=== PATIENT | female | born 1975 ===

== ENCOUNTER 2018-09-06 21:15 | Observation (INO) ==
[2018-09-06] MEDS ORDERED: PROMETHAZINE 25 MG/1 ML VIAL ONE (21:37)
[2018-09-06] MEDS ORDERED: PANTOPRAZOLE 40 MG VIAL IV STA (21:40)
[2018-09-06] MEDS ORDERED: PROMETHAZINE 25 MG/1 ML VIAL IM STA (21:40)
[2018-09-06] MEDS ORDERED: NITROGLYCERIN 2% OINT 1 INCH/GM PACK TOP STA (21:40)
[2018-09-06] MEDS ORDERED: ASPIRIN 325 MG TABLET PO STA (21:40)
[2018-09-06] MEDS ORDERED: FUROSEMIDE 40 MG/4 ML VIAL IV STA (22:09)
[2018-09-06 22:47] LABS: Basophils % 0.3 % (0.0-0.8); Eosinophils # 0.1 10*3/uL (0.0-0.87); Hematocrit 38.3 VOL% (35.7-47.0); Hemoglobin 12.5 GM/DL (12.0-16.0); Immature Granulocytes % 0.7 %; Immature Granulocytes Absolute 0.11 #; Lymphocytes # 1.1 10*3/uL (1.4-4.0); Lymphocytes % 7.3 % (21.3-54.2); Mean Corpuscular HGB Conc 32.6 GM/DL (32-36); Mean Corpuscular Volume 85.9 FL (87-102); Mean Platelet Volume 10.2 FL (9.6-12.0); Monocytes % 5.4 % (1.7-12.7); Neutrophils % 85.3 % (38.7-73.9); Platelet Count 249 T/CUMM (130-400); Red Blood Count 4.46 MC/CUMM (3.8-5.5); Red Cell Distribution Width 13.2 % (9.3-17.3); White Blood Count 14.7 T/CUMM (4-12)
[2018-09-06 23:01] LABS: PT Patient Result 10.7 SECS
[2018-09-06] MEDS ORDERED: ONDANSETRON 4 MG/2 ML VIAL IV PRN (23:05)
[2018-09-06] MEDS ORDERED: MORPHINE 4 MG/1 ML VIAL IV PRN (23:05)
[2018-09-06 23:10] LABS: Albumin 3.8 G/DL (3.4-5.0); Bilirubin,Total 0.8 MG/DL (0.2-1.0); Calcium 9.2 MG/DL (8.5-10.1); Osmolality,Calculated 295.1 MOS/KG (273-304); Total Protein 7.4 G/DL (6.4-8.3)
[2018-09-07 00:47] LABS: Apearance,Urine CLOUDY (Clear); Bacteria,Urine Many /HPF (Few); Bilirubin,Urine Negative (Negative); Blood, Urine Small mg/dL (Negative); Glucose,Urine (UA) 150 mg/dL (Negative); Ketones,Urine Negative (Negative); Mucus,Urine Occasional /LPF (Occasional); Nitrite,Urine Negative (Negative); Protein,Urine Negative; RBC,Urine 13 /HPF (0-4); Urine Color Yellow (Yellow); Urine Specific Gravity 1.011 (1.001-1.035); Urine Urobilinogen < 2.0 EU/DL (0.2-1.0); WBC,Urine 539 /HPF (0-6)
[2018-09-07 00:52] LABS: Barbiturates Screen,Urine Negative (Negative); Benzodiazepines Screen,Urine Negative (Negative); Cannabinoid Screen,Urine Negative (Negative); Opiate Screen,Urine Positive (Negative); Phencyclidine Screen,Urine Negative (Negative)
[2018-09-07] MEDS: ENOXAPARIN 40 MG/0.4 ML SYRINGE SUBCUT SCH ×2 (01:10→23:41)
[2018-09-07 05:23] LABS: Basophils % 0.4 % (0.0-0.8); Eosinophils % 0.1 % (0.00-10.9); Hematocrit 37.6 VOL% (35.7-47.0); Hemoglobin 12.4 GM/DL (12.0-16.0); Immature Granulocytes % 0.5 %; Immature Granulocytes Absolute 0.06 #; Lymphocytes # 0.8 10*3/uL (1.4-4.0); Mean Corpuscular Volume 85.1 FL (87-102); Monocytes % 3.4 % (1.7-12.7); Neutrophils % 88.6 % (38.7-73.9); Platelet Count 274 T/CUMM (130-400); Red Blood Count 4.42 MC/CUMM (3.8-5.5); Red Cell Distribution Width 13.2 % (9.3-17.3); White Blood Count 11.2 T/CUMM (4-12)
[2018-09-07 05:56] LABS: Osmolality,Calculated 294.4 MOS/KG (273-304)
[2018-09-07] MEDS ORDERED: GLUCAGON 1 MG VIAL IM PRN (07:25)
[2018-09-07] MEDS ORDERED: DEXTROSE 50% 25 GM/50 ML VIAL IV PRN (07:25)
[2018-09-07 07:37] LABS: VLDL CHOLESTEROL 41.6 MG/DL
[2018-09-07 08:57] LABS: Free T4 (Free Thyroxine) 0.96 NG/DL (0.76-1.46); Thyroid Stimulating Hormone 5.01 uIU/ml (0.358-3.74)
[2018-09-07] MEDS ORDERED: LOSARTAN 25 MG TABLET PO SCH (09:00)
[2018-09-07] MEDS: ASPIRIN EC 81 MG TABLET PO SCH (09:10)
[2018-09-07] MEDS: CARVEDILOL 6.25 MG TABLET PO SCH ×2 (09:10→21:28)
[2018-09-07] MEDS: FUROSEMIDE 40 MG/4 ML VIAL IV SCH ×2 (09:11→17:18)
[2018-09-07] MEDS: PANTOPRAZOLE 40 MG TABLET PO SCH (09:11)
[2018-09-07] MEDS: cefTRIAXone 1,000 MG in SYRINGE 1 EACH IV SCH (10:52)
[2018-09-07] MEDS: INSULIN REGULAR 100 UNIT/ML SUBCUT SCH ×4 (10:53→21:28)
[2018-09-07] MEDS: ALBUTEROL/IPRATROPIUM 3 ML NEB RESP TX SCH ×3 (11:21→19:41)
[2018-09-07] MEDS: GLIMEPIRIDE 4 MG TABLET PO SCH (18:17)
[2018-09-07] MEDS: ATORVASTATIN 40 MG TABLET PO SCH (21:28)
[2018-09-08] MEDS: ALBUTEROL/IPRATROPIUM 3 ML NEB RESP TX SCH ×7 (00:22→23:55)
[2018-09-08 05:04] LABS: Basophils % 0.4 % (0.0-0.8); Eosinophils # 0.3 10*3/uL (0.0-0.87); Eosinophils % 3.4 % (0.00-10.9); Hemoglobin 12.5 GM/DL (12.0-16.0); Immature Granulocytes % 0.5 %; Immature Granulocytes Absolute 0.05 #; Lymphocytes # 2.6 10*3/uL (1.4-4.0); Lymphocytes % 27.3 % (21.3-54.2); Mean Corpuscular HGB Conc 32.9 GM/DL (32-36); Mean Corpuscular Volume 85.6 FL (87-102); Mean Platelet Volume 10.6 FL (9.6-12.0); Monocytes % 7.9 % (1.7-12.7); Neutrophils % 60.5 % (38.7-73.9); Platelet Count 254 T/CUMM (130-400); Red Blood Count 4.44 MC/CUMM (3.8-5.5); Red Cell Distribution Width 13.3 % (9.3-17.3); White Blood Count 9.3 T/CUMM (4-12)
[2018-09-08 05:30] LABS: Calcium 9.1 MG/DL (8.5-10.1); Osmolality,Calculated 290.1 MOS/KG (273-304)
[2018-09-08] MEDS ORDERED: POTASSIUM CHLORIDE RIDER 10 MEQ in PREMIX 1 EACH IV PRN (06:04)
[2018-09-08] MEDS ORDERED: POTASSIUM CHLORIDE 20 MEQ TABLET PO ONE (07:54)
[2018-09-08] MEDS: INSULIN REGULAR 100 UNIT/ML SUBCUT SCH ×4 (08:38→21:55)
[2018-09-08] MEDS ORDERED: FUROSEMIDE 20 MG TABLET PO SCH (09:00)
[2018-09-08] MEDS ORDERED: CARVEDILOL 3.125 MG TABLET PO SCH (10:50)
[2018-09-08] MEDS ORDERED: amLODIPine 5 MG TABLET PO SCH ×2 (11:00→21:00)
[2018-09-08] MEDS ORDERED: REGADENOSON 0.4 MG/5 ML SYRINGE IV ONE (11:15)
[2018-09-08] MEDS: ASPIRIN EC 81 MG TABLET PO SCH (11:29)
[2018-09-08] MEDS: GLIMEPIRIDE 4 MG TABLET PO SCH ×2 (11:30→18:20)
[2018-09-08] MEDS: cefTRIAXone 1,000 MG in SYRINGE 1 EACH IV SCH (11:30)
[2018-09-08] MEDS: PANTOPRAZOLE 40 MG TABLET PO SCH (11:30)
[2018-09-08] MEDS: CARVEDILOL 6.25 MG TABLET PO SCH (12:43)
[2018-09-08] MEDS ORDERED: GLUCAGON 1 MG VIAL IM PRN (14:19)
[2018-09-08] MEDS ORDERED: DEXTROSE 50% 25 GM/50 ML VIAL IV PRN (14:19)
[2018-09-08] MEDS: ATORVASTATIN 40 MG TABLET PO SCH (21:56)
[2018-09-08] MEDS: POTASSIUM CHLORIDE 20 MEQ TABLET PO PRN ×2 (21:56→23:56)
[2018-09-09] MEDS: ENOXAPARIN 40 MG/0.4 ML SYRINGE SUBCUT SCH (00:20)
[2018-09-09] MEDS: POTASSIUM CHLORIDE 20 MEQ TABLET PO PRN (02:40)
[2018-09-09] MEDS: ALBUTEROL/IPRATROPIUM 3 ML NEB RESP TX SCH ×3 (03:35→11:12)
[2018-09-09] MEDS: LEVOTHYROXINE 150 MCG TABLET PO SCH ×2 (05:43→09:03)
[2018-09-09 07:10] LABS: Basophils % 0.4 % (0.0-0.8); Eosinophils # 0.3 10*3/uL (0.0-0.87); Eosinophils % 3.5 % (0.00-10.9); Immature Granulocytes % 0.7 %; Immature Granulocytes Absolute 0.06 #; Lymphocytes # 2.1 10*3/uL (1.4-4.0); Lymphocytes % 22.4 % (21.3-54.2); Mean Corpuscular HGB Conc 33.3 GM/DL (32-36); Mean Corpuscular Volume 84.8 FL (87-102); Mean Platelet Volume 10.7 FL (9.6-12.0); Monocytes % 8.2 % (1.7-12.7); Neutrophils % 64.8 % (38.7-73.9); Platelet Count 249 T/CUMM (130-400); Red Cell Distribution Width 13.2 % (9.3-17.3); White Blood Count 9.2 T/CUMM (4-12)
[2018-09-09 07:24] LABS: Calcium 9.4 MG/DL (8.5-10.1); Osmolality,Calculated 287.1 MOS/KG (273-304)
[2018-09-09 08:17] VITALS: BP 151/89
[2018-09-09] MEDS ORDERED: amLODIPine 5 MG TABLET PO SCH (09:00)
[2018-09-09] MEDS ORDERED: CARVEDILOL 6.25 MG TABLET PO SCH (09:00)
[2018-09-09] MEDS: INSULIN REGULAR 100 UNIT/ML SUBCUT SCH (09:02)
[2018-09-09] MEDS: ASPIRIN EC 81 MG TABLET PO SCH (09:03)
[2018-09-09] MEDS: GLIMEPIRIDE 4 MG TABLET PO SCH (09:03)
[2018-09-09] MEDS: PANTOPRAZOLE 40 MG TABLET PO SCH (09:03)
[2018-09-09] MEDS: cefTRIAXone 1,000 MG in SYRINGE 1 EACH IV SCH (09:06)
== END 2018-09-09 12:15 | disposition home or self-care (01) ==
LOC: EDUNIT# → EDBD → N.EDINP 21:15 → N.ED 21:15 → N.TELES 23:36
PROVIDERS: ADMIT Internal Medicine; ATTEND Internal Medicine

== ENCOUNTER 2020-07-03 13:41 | Observation (INO) ==
[2020-07-03] MEDS ORDERED: amLODIPine 10 MG TABLET ONE ×2 (14:32→14:35)
[2020-07-03] MEDS ORDERED: FUROSEMIDE 100 MG/10 ML VIAL ONE (14:32)
[2020-07-03] MEDS ORDERED: INSULIN REGULAR 100 UNIT/ML ONE (14:34)
[2020-07-03] MEDS ORDERED: INSULIN REGULAR 100 UNIT/ML SUBCUT STA (14:43)
[2020-07-03] MEDS ORDERED: FUROSEMIDE 40 MG/4 ML VIAL IV STA (14:43)
[2020-07-03] MEDS ORDERED: amLODIPine 5 MG TABLET PO STA (14:43)
[2020-07-03 15:09] LABS: Basophils % 0.4 % (0.0-0.8); Eosinophils # 0.1 10*3/uL (0.0-0.87); Eosinophils % 1.8 % (0.00-10.9); Hematocrit 43.4 VOL% (35.7-47.0); Hemoglobin 14.6 GM/DL (12.0-16.0); Immature Granulocytes % 0.4 %; Immature Granulocytes Absolute 0.03 #; Lymphocytes # 1.7 10*3/uL (1.4-4.0); Lymphocytes % 22.3 % (21.3-54.2); Mean Corpuscular HGB Conc 33.6 GM/DL (32-36); Mean Corpuscular Volume 89.1 FL (87-102); Mean Platelet Volume 11.2 FL (9.6-12.0); Neutrophils % 68.1 % (38.7-73.9); Platelet Count 253 T/CUMM (130-400); Red Blood Count 4.87 MC/CUMM (3.8-5.5); Red Cell Distribution Width 14.3 % (9.3-17.3); White Blood Count 7.8 T/CUMM (4-12)
[2020-07-03] MEDS ORDERED: DEXTROSE 50% 25 GM/50 ML VIAL IV PRN (15:20)
[2020-07-03] MEDS ORDERED: GLUCAGON 1 MG VIAL IM PRN (15:20)
[2020-07-03] MEDS ORDERED: hydrALAZINE 20 MG/1 ML VIAL IV PRN (15:20)
[2020-07-03] MEDS ORDERED: ONDANSETRON 4 MG/2 ML VIAL IV PRN (15:20)
[2020-07-03 15:44] LABS: Albumin 3.3 G/DL (3.4-5.0); Bilirubin,Total 2.6 MG/DL (0.2-1.0); Calcium 9.1 MG/DL (8.5-10.1); Osmolality,Calculated 292.7 MOS/KG (273-304); Potassium 3.8 MMOL/L (3.5-5.1); Thyroid Stimulating Hormone 46.7 uIU/ml (0.358-3.74); Total Protein 6.9 G/DL (6.4-8.2)
[2020-07-03 16:28] LABS: Free T4 (Free Thyroxine) 0.61 NG/DL (0.76-1.46)
[2020-07-03] MEDS: INSULIN LISPRO 100 UNIT/ML SUBCUT SCH ×2 (17:32→20:49)
[2020-07-03] MEDS: carvediloL 3.125 MG TABLET PO SCH (17:38)
[2020-07-03] MEDS ORDERED: PNEUMOCOCCAL VACCINE (13 VALENT) 0.5 ML SYRINGE IM ONE (17:57)
[2020-07-03] MEDS: lisinopriL 5 MG TABLET PO SCH (20:50)
[2020-07-03] MEDS: ENOXAPARIN 40 MG/0.4 ML SYRINGE SUBCUT SCH (20:51)
[2020-07-03] MEDS: INSULIN GLARGINE 100 UNIT/ML SUBCUT SCH (20:51)
[2020-07-03] MEDS: ATORVASTATIN 40 MG TABLET PO SCH (20:51)
[2020-07-04] MEDS: LEVOTHYROXINE 75 MCG TABLET PO SCH (06:11)
[2020-07-04 06:41] LABS: Basophils % 0.5 % (0.0-0.8); Eosinophils # 0.3 10*3/uL (0.0-0.87); Eosinophils % 3.7 % (0.00-10.9); Hematocrit 43.5 VOL% (35.7-47.0); Hemoglobin 14.2 GM/DL (12.0-16.0); Immature Granulocytes % 0.4 %; Immature Granulocytes Absolute 0.03 #; Lymphocytes # 2.7 10*3/uL (1.4-4.0); Mean Corpuscular HGB Conc 32.6 GM/DL (32-36); Mean Platelet Volume 10.2 FL (9.6-12.0); Monocytes % 9.2 % (1.7-12.7); Neutrophils % 51.2 % (38.7-73.9); Platelet Count 252 T/CUMM (130-400); Red Blood Count 4.78 MC/CUMM (3.8-5.5); Red Cell Distribution Width 14.2 % (9.3-17.3); White Blood Count 7.6 T/CUMM (4-12)
[2020-07-04 07:01] LABS: Platelet Estimate Adequate
[2020-07-04 07:17] LABS: Osmolality,Calculated 280.5 MOS/KG (273-304); Risk Ratio 7.18; VLDL CHOLESTEROL 45.6 MG/DL
[2020-07-04] MEDS ORDERED: POTASSIUM CHLORIDE 20 MEQ TABLET PO ONE (07:30)
[2020-07-04] MEDS ORDERED: INSULIN GLARGINE 100 UNIT/ML SUBCUT SCH (09:00)
[2020-07-04] MEDS: INSULIN LISPRO 100 UNIT/ML SUBCUT SCH ×4 (09:22→21:15)
[2020-07-04] MEDS: ASPIRIN CHEW 81 MG TABLET PO SCH (09:29)
[2020-07-04] MEDS: PANTOPRAZOLE 40 MG TABLET PO SCH (09:29)
[2020-07-04] MEDS: carvediloL 3.125 MG TABLET PO SCH ×2 (09:29→16:11)
[2020-07-04] MEDS: FUROSEMIDE 40 MG/4 ML VIAL IV SCH ×2 (09:29→15:39)
[2020-07-04] MEDS: lisinopriL 5 MG TABLET PO SCH ×2 (09:32→21:17)
[2020-07-04] MEDS: ALBUTEROL/IPRATROPIUM 3 ML NEB RESP TX SCH ×2 (13:42→18:17)
[2020-07-04] MEDS ORDERED: ACETAMINOPHEN 325 MG TABLET PO PRN (18:40)
[2020-07-04] MEDS: INSULIN GLARGINE 100 UNIT/ML SUBCUT SCH (21:15)
[2020-07-04] MEDS: ENOXAPARIN 40 MG/0.4 ML SYRINGE SUBCUT SCH (21:16)
[2020-07-04] MEDS: ATORVASTATIN 40 MG TABLET PO SCH (21:17)
[2020-07-05] MEDS: ALBUTEROL/IPRATROPIUM 3 ML NEB RESP TX SCH ×3 (01:43→12:00)
[2020-07-05] MEDS: LEVOTHYROXINE 75 MCG TABLET PO SCH (06:08)
[2020-07-05 06:39] LABS: Calcium 8.9 MG/DL (8.5-10.1); Osmolality,Calculated 280.7 MOS/KG (273-304); Potassium 3.5 MMOL/L (3.5-5.1)
[2020-07-05 06:41] LABS: Basophils % 0.5 % (0.0-0.8); Eosinophils # 0.3 10*3/uL (0.0-0.87); Eosinophils % 3.8 % (0.00-10.9); Hematocrit 42.6 VOL% (35.7-47.0); Hemoglobin 14.2 GM/DL (12.0-16.0); Immature Granulocytes % 0.3 %; Immature Granulocytes Absolute 0.02 #; Lymphocytes # 2.2 10*3/uL (1.4-4.0); Lymphocytes % 28.6 % (21.3-54.2); Mean Corpuscular HGB Conc 33.3 GM/DL (32-36); Mean Corpuscular Volume 90.6 FL (87-102); Mean Platelet Volume 11.1 FL (9.6-12.0); Monocytes % 11.2 % (1.7-12.7); Neutrophils % 55.6 % (38.7-73.9); Platelet Count 251 T/CUMM (130-400); Red Cell Distribution Width 14.1 % (9.3-17.3); White Blood Count 7.7 T/CUMM (4-12)
[2020-07-05] MEDS: INSULIN LISPRO 100 UNIT/ML SUBCUT SCH ×2 (08:00→11:49)
[2020-07-05] MEDS: ASPIRIN CHEW 81 MG TABLET PO SCH (09:04)
[2020-07-05] MEDS: PANTOPRAZOLE 40 MG TABLET PO SCH (09:04)
[2020-07-05] MEDS: lisinopriL 5 MG TABLET PO SCH (09:04)
[2020-07-05] MEDS: FUROSEMIDE 40 MG/4 ML VIAL IV SCH (09:04)
[2020-07-05] MEDS: carvediloL 3.125 MG TABLET PO SCH (09:04)
[2020-07-05 11:58] VITALS: BP 117/75
== END 2020-07-05 13:30 | disposition home or self-care (01) ==
LOC: N.ED 13:41 → N.EDINP 13:41 → N.TELEN 16:21
PROVIDERS: ADMIT Emergency Medicine; ATTEND Emergency Medicine

== ENCOUNTER 2021-05-19 11:35 | Inpatient (IN) ==
[2021-05-19] MEDS ORDERED: SIMETHICONE CHEW 125 MG TABLET PO PRN (15:24)
[2021-05-19] MEDS ORDERED: hydrALAZINE 20 MG/1 ML VIAL IV PRN (15:24)
[2021-05-19] MEDS ORDERED: ONDANSETRON 4 MG/2 ML VIAL IV PRN (15:24)
[2021-05-19] MEDS ORDERED: LACTULOSE 20 GM/30 ML UDCUP PO PRN (15:24)
[2021-05-19] MEDS ORDERED: guaiFENesin/DM ER 600-30 MG TABLET PO PRN (15:24)
[2021-05-19] MEDS ORDERED: ALBUTEROL/IPRATROPIUM 3 ML NEB RESP TX PRN (15:24)
[2021-05-19] MEDS ORDERED: GLUCAGON 1 MG VIAL IM PRN (15:24)
[2021-05-19] MEDS ORDERED: DOCUSATE SODIUM 100 MG CAPSULE PO PRN (15:24)
[2021-05-19] MEDS ORDERED: DEXTROSE 10% 250 ML BAG IV PRN (15:35)
[2021-05-19 16:00] LABS: Basophils % 0.1 % (0.0-0.8); Eosinophils # 0.5 10*3/uL (0.0-0.87); Eosinophils % 5.1 % (0.00-10.9); Hematocrit 50.7 VOL% (35.7-47.0); Hemoglobin 15.8 GM/DL (12.0-16.0); Immature Granulocytes % 0.4 %; Immature Granulocytes Absolute 0.04 #; Lymphocytes # 1.3 10*3/uL (1.4-4.0); Lymphocytes % 12.7 % (21.3-54.2); Mean Corpuscular HGB Conc 31.2 GM/DL (32-36); Mean Corpuscular Volume 90.4 FL (87-102); Monocytes % 9.3 % (1.7-12.7); Neutrophils % 72.4 % (38.7-73.9); Platelet Count 332 T/CUMM (130-400); Red Blood Count 5.61 MC/CUMM (3.8-5.5); Red Cell Distribution Width 18.5 % (9.3-17.3); White Blood Count 9.9 T/CUMM (4-12)
[2021-05-19 16:26] LABS: Albumin 2.7 G/DL (3.4-5.0); Bilirubin,Total 1.3 MG/DL (0.20-1.00); Calcium 8.8 MG/DL (8.5-10.1); Osmolality,Calculated 291.3 MOS/KG (273-304); Potassium 3.7 MMOL/L (3.5-5.1); Total Protein 6.7 G/DL (6.4-8.2)
[2021-05-19 16:33] LABS: Thyroid Stimulating Hormone 24.5 uIU/ml (0.358-3.74)
[2021-05-19] MEDS: INSULIN LISPRO 100 UNIT/ML SUBCUT SCH ×2 (16:35→21:35)
[2021-05-19] MEDS: ENOXAPARIN 30 MG/0.3 ML SYRINGE SUBCUT SCH (16:43)
[2021-05-19] MEDS: INSULIN GLARGINE 100 UNIT/ML SUBCUT SCH (16:44)
[2021-05-19] MEDS: carvediloL 25 MG TABLET PO SCH (16:46)
[2021-05-19] MEDS: ACETAMINOPHEN 325 MG TABLET PO PRN (21:33)
[2021-05-20] MEDS: LEVOTHYROXINE 100 MCG TABLET PO SCH (05:12)
[2021-05-20 05:59] LABS: Basophils % 0.1 % (0.0-0.8); Eosinophils # 0.5 10*3/uL (0.0-0.87); Eosinophils % 5.6 % (0.00-10.9); Hematocrit 46.3 VOL% (35.7-47.0); Hemoglobin 14.2 GM/DL (12.0-16.0); Immature Granulocytes % 0.2 %; Immature Granulocytes Absolute 0.02 #; Lymphocytes # 1.4 10*3/uL (1.4-4.0); Lymphocytes % 16.7 % (21.3-54.2); Mean Corpuscular HGB Conc 30.7 GM/DL (32-36); Mean Corpuscular Volume 91.9 FL (87-102); Mean Platelet Volume 10.4 FL (9.6-12.0); Monocytes % 10.9 % (1.7-12.7); Neutrophils % 66.5 % (38.7-73.9); Platelet Count 286 T/CUMM (130-400); Red Blood Count 5.04 MC/CUMM (3.8-5.5); Red Cell Distribution Width 17.5 % (9.3-17.3); White Blood Count 8.6 T/CUMM (4-12)
[2021-05-20 06:26] LABS: Albumin 2.4 G/DL (3.4-5.0); Bilirubin,Total 1.3 MG/DL (0.20-1.00); Calcium 9.1 MG/DL (8.5-10.1); Osmolality,Calculated 292.1 MOS/KG (273-304); Potassium 3.5 MMOL/L (3.5-5.1); Total Protein 6.1 G/DL (6.4-8.2)
[2021-05-20] MEDS: INSULIN LISPRO 100 UNIT/ML SUBCUT SCH ×4 (08:17→22:10)
[2021-05-20] MEDS: EMPAGLIFLOZIN 10 MG PO SCH (08:18)
[2021-05-20] MEDS ORDERED: amLODIPine 2.5 MG TABLET PO SCH (09:00)
[2021-05-20] MEDS ORDERED: lisinopriL 5 MG TABLET PO SCH (09:00)
[2021-05-20] MEDS: carvediloL 25 MG TABLET PO SCH ×2 (09:13→16:52)
[2021-05-20] MEDS: PANTOPRAZOLE 40 MG TABLET PO SCH (09:13)
[2021-05-20] MEDS: ATORVASTATIN 40 MG TABLET PO SCH (09:13)
[2021-05-20] MEDS: FUROSEMIDE 40 MG TABLET PO SCH (09:14)
[2021-05-20] MEDS: ENOXAPARIN 30 MG/0.3 ML SYRINGE SUBCUT SCH (16:51)
[2021-05-20] MEDS: INSULIN GLARGINE 100 UNIT/ML SUBCUT SCH (16:52)
[2021-05-20] MEDS: ACETAMINOPHEN 325 MG TABLET PO PRN (22:12)
[2021-05-21 05:08] LABS: Basophils % 0.1 % (0.0-0.8); Eosinophils # 0.4 10*3/uL (0.0-0.87); Eosinophils % 4.5 % (0.00-10.9); Hematocrit 45.7 VOL% (35.7-47.0); Hemoglobin 14.1 GM/DL (12.0-16.0); Immature Granulocytes % 0.4 %; Immature Granulocytes Absolute 0.03 #; Lymphocytes # 1.4 10*3/uL (1.4-4.0); Lymphocytes % 18.1 % (21.3-54.2); Mean Corpuscular HGB Conc 30.9 GM/DL (32-36); Mean Platelet Volume 9.5 FL (9.6-12.0); Monocytes % 9.8 % (1.7-12.7); Neutrophils % 67.1 % (38.7-73.9); Platelet Count 274 T/CUMM (130-400); Red Blood Count 5.02 MC/CUMM (3.8-5.5); Red Cell Distribution Width 17.4 % (9.3-17.3); White Blood Count 7.8 T/CUMM (4-12)
[2021-05-21] MEDS: LEVOTHYROXINE 100 MCG TABLET PO SCH (05:15)
[2021-05-21 05:23] LABS: Osmolality,Calculated 290.3 MOS/KG (273-304); Potassium 4.1 MMOL/L (3.5-5.1)
[2021-05-21] MEDS: INSULIN LISPRO 100 UNIT/ML SUBCUT SCH ×3 (08:31→16:52)
[2021-05-21] MEDS ORDERED: lisinopriL 5 MG TABLET PO SCH (09:00)
[2021-05-21] MEDS: carvediloL 25 MG TABLET PO SCH ×2 (09:28→16:51)
[2021-05-21] MEDS: GABAPENTIN 100 MG CAPSULE PO SCH ×2 (09:28→15:34)
[2021-05-21] MEDS: ATORVASTATIN 40 MG TABLET PO SCH (09:28)
[2021-05-21] MEDS: FUROSEMIDE 40 MG TABLET PO SCH (09:28)
[2021-05-21] MEDS: PANTOPRAZOLE 40 MG TABLET PO SCH (09:28)
[2021-05-21] MEDS: EMPAGLIFLOZIN 10 MG PO SCH (09:32)
[2021-05-21] MEDS: ENOXAPARIN 30 MG/0.3 ML SYRINGE SUBCUT SCH (15:34)
[2021-05-21] MEDS: INSULIN GLARGINE 100 UNIT/ML SUBCUT SCH (16:52)
[2021-05-21 18:02] VITALS: BP 122/80
== END 2021-05-21 17:50 | disposition home or self-care (01) | DRG 315 ==
LOC: SUATTDRO 13:55 → N.TELES 13:55
PROVIDERS: ADMIT Internal Medicine; ATTEND Internal Medicine